=== PATIENT | female | born 1995 | race Caucasian/White ===

== ENCOUNTER → 2018-08-05 | Outpatient (CLI) | payer MEDICAID ==
--- NOTE | 2018-08-06 16:42 | RADIOLOGY IMAGING REPORT ---
[place] [facility] [place] NAME[place] BRITTANY JENNINGS : [id number] MR: [id number] V: [id number] EXAM DATE: [id number] ORDERING PHYSICIAN: TERRY MALONEY TECHNOLOGIST: David Hopkins RDMS, RDTEVIN PROCEDURE:US RIGHT BREAST COMPLETE COMPARISON:None. INDICATIONS:RT BREAST MASS TIMES 2 YEARS FINDINGS: In the 9:30 position of the Right breast there is a multi lobular hypoechoic mass with acoustic enhancement. This mass measures 4.3 x 3.2 x 1.8cm. This may represent a giant polylobular fibroadenoma or multiple contiguous adjacent fibroadenomas. Other solid mass is not entirely excluded. In the 12 o'clock position of the Right breast 6cm from the nipple is a 2.1 x 1.9 x 1cm well circumscribed ovoid hypoechoic mass with acoustic enhancement likely representing a fibroadenoma. DIAGNOSTIC CATEGORY 3--PROBABLY BENIGN FINDING. RECOMMENDATIONS: SIX MONTH FOLLOW-UP ULTRASOUND: RIGHT BREAST. IMPRESSION: BIRADS 3: Probably benign finding. 1. There is a well circumscribed hypoechoic mass 12 o'clock position of the Right breast as described above likely representing a fibroadenoma although other solid mass is not totally ruled out. 2. In the 9:30 position of the Right breast there is a polylobular large hypoechoic mass which may represent a giant fibroadenoma or multiple contiguous fibroadenomas although other solid mass is also included in the differential diagnosis therefore a 6 month follow-up Right breast Ultrasound is recommended. Dictated by: Alycia Longoria M.D. on 08/05/2018 at 17:03 Transcribed by: DALE on 08/06/2018 at 10:06 Approved by: Alycia Longoria M.D. on 08/06/2018 at 16:41 [facility]
== END ==
LOC: MAMO 12:45
PROVIDERS: ATTEND Nurse Practitioner Family
DX: N63.11 Unspecified lump in the right breast, upper outer quadrant (principal); N63.10 Unspecified lump in the right breast, unspecified quadrant

== ENCOUNTER → 2019-01-21 | Outpatient (CLI) | payer MEDICAID ==
--- NOTE | 2019-01-22 14:54 | RADIOLOGY IMAGING REPORT ---
FACILITY: [facility] - [place] PATIENT NAME: BRITTANY JENNINGS : [id number] MR: [id number] V: [id number] EXAM DATE: [id number] ORDERING PHYSICIAN: TERRY MALONEY TECHNOLOGIST: Gardenia Richmond RDMS(ABD,OBGYN,BR),RVT PROCEDURE:US RIGHT BREAST COMPLETE COMPARISON:Prior Right breast Ultrasound 08/05/18. INDICATIONS:6 month follow-up. FINDINGS: In the 9 o'clock position of the Right breast again noted is a ovoid polylobular hypoechoic parallel circumscribed mass with some acoustic enhancement. This mass measures approximately 3.7 x 3.5 x 2.4cm and relatively unchanged. Due to the polylobular configuration direct comparison is somewhat difficult. In the 12 o'clock position of the Right breast there is an ovoid circumscribed parallel hypoechoic mass with faint acoustic enhancement measuring 2.2 x 1.9 x 1cm that is relatively unchanged in size. These masses likely represent fibroadenomas however due to the solid nature a 6 month follow-up Right breast Ultrasound is recommended unless clinical findings warrant more immediate attention. DIAGNOSTIC CATEGORY 3--PROBABLY BENIGN FINDING. RECOMMENDATIONS: SIX MONTH FOLLOW-UP ULTRASOUND: RIGHT BREAST. IMPRESSION: BIRADS 3: Probably benign finding. A 6 month Right breast Ultrasound recommended as described. Dictated by: Alycia Longoria M.D. on 01/21/2019 at 16:55 Transcribed by: DALE on 01/22/2019 at 10:01 Approved by: Alycia Longoria M.D. on 01/22/2019 at 14:53 [facility]
== END ==
LOC: US 00:24
PROVIDERS: ATTEND Nurse Practitioner Family
DX: R92.8 Other abnormal and inconclusive findings on diagnostic imaging of breast (principal)